=== PATIENT | female | born 1995 | race African-American/Black ===

== ENCOUNTER 2023-11-01 15:25 | Day surgery (SDC) | payer MEDICAID, OTHER ==
[2023-11-01 16:35] VITALS: BMI 48.2
[2023-11-01] MEDS ORDERED: hydrALAZINE 20 MG/ML VIAL SLOW IVP PRN (16:48)
== END 2023-11-01 17:34 | disposition home or self-care (01) ==
LOC: CSHLD/OP 15:25
PROVIDERS: ATTEND Obstetrics & Gynecology
DX: Z36.89 Encounter for other specified antenatal screening (principal); O99.213 Obesity complicating pregnancy, third trimester; Z90.49 Acquired absence of other specified parts of digestive tract; Z79.82 Long term (current) use of aspirin; Z79.899 Other long term (current) drug therapy; Z3A.38 38 weeks gestation of pregnancy; Z87.59 Personal history of other complications of pregnancy, childbirth and the puerperium

== ENCOUNTER 2023-11-06 05:00 | Inpatient (IN) | payer BC, MEDICAID, OTHER ==
[2023-11-06] MEDS ORDERED: ePHEDrine Sulfate 50 MG/10 ML VIAL ONE (08:00)
[2023-11-06] MEDS ORDERED: Bupivacaine 0.25% HCL 30 ML VIAL ONE (08:00)
[2023-11-06] MEDS ORDERED: Acetaminophen 500 MG TAB PO PRN (20:20)
[2023-11-06] MEDS ORDERED: Ondansetron PF 4 MG/2 ML Vial IVP PRN (20:20)
[2023-11-06] MEDS ORDERED: Promethazine HCl 25 MG/ML VIAL IM PRN (20:20)
[2023-11-06] MEDS ORDERED: hydrALAZINE 20 MG/ML VIAL SLOW IVP PRN (20:20)
[2023-11-06] MEDS ORDERED: Lidocaine 1% (PF) 30 ML VIAL SC PRN (20:20)
[2023-11-06] MEDS ORDERED: Lactated Ringer's 1,000 ML IV SCH (21:00)
[2023-11-06 21:21] VITALS: BMI 48.2
[2023-11-06 21:28] LABS: Hematocrit 31.4 % (34.9-44.5); Hemoglobin 9.7 g/dL (12.0-15.5); Mean Corpuscular HGB CONC 30.9 g/dL (32.0-36.0); Mean Corpuscular Hemoglobin 21.6 pg (27.0-33.0); Mean Corpuscular Volume 69.8 fl (81.6-98.3); Platelet Count 218 10x3/uL (150-450); RBC Distribution Width 20.7 % (11.5-14.5); White Blood Cell (WBC) Count 6.8 10x3/uL (3.5-10.5)
[2023-11-06] MEDS: Misoprostol 100 MCG TAB VAG PRN (21:39)
[2023-11-06] MEDS: Penicillin G Potassium 5 MILL.UNITS in Sodium Chloride 0.9% 100 ML IVPB SCH (21:39)
[2023-11-06 21:56] LABS: Syphilis Antibody Nonreactive (Nonreactive); Syphilis Antibody Index 0.04 S/CO (<1.00 Non-Reactive)
[2023-11-06 21:57] LABS: HBSAg Index 0.23 S/CO (0-0.99); Hep B Surf Ag - L&D Non-Reactive S/CO (NonReactive)
[2023-11-07] MEDS: Penicillin G 2.5 MILL.units 2.5 MILL.UNITS in Premix 1 BAG IVPB SCH (02:28)
[2023-11-07] MEDS: fentaNYL 50 mcg/mL 1 mL Vial ONE (10:33)
[2023-11-07] MEDS: fentaNYL/Ropivacaine Epidural 100 ML ONE (11:53)
[2023-11-07] MEDS: Oxytocin 30 units/NS 500 ML 500 ML IV PRN (12:14)
[2023-11-07] MEDS ORDERED: ePHEDrine Sulfate 50 MG/10 ML VIAL SLOW IVP PRN (12:40)
[2023-11-07] MEDS ORDERED: Naloxone HCl 0.4 mg/ml Vial IVP PRN ×2 (12:40)
[2023-11-07] MEDS ORDERED: Acetaminophen 325 MG TAB PO PRN (12:40)
[2023-11-07] MEDS ORDERED: Promethazine HCl 25 MG/ML VIAL IM PRN ×2 (12:40→16:17)
[2023-11-07] MEDS ORDERED: Ondansetron PF 4 MG/2 ML Vial IVP PRN ×2 (12:40→16:17)
[2023-11-07] MEDS ORDERED: Moisturizing Cream (Eucerin) 113 GM JAR TOP PRN (12:40)
[2023-11-07] MEDS ORDERED: diphenhydrAMINE 50 MG/ML VIAL IVP PRN (12:40)
[2023-11-07] MEDS ORDERED: Lactated Ringer's 500 ML IV PRN (12:40)
[2023-11-07] MEDS ORDERED: Communication Order-Pharmacy FS SCH (12:45)
[2023-11-07] MEDS ORDERED: fentaNYL 2 mcg/Ropivacaine 0.2% Epidural 100 ML CADD EPIDURAL SCH (12:45)
[2023-11-07] MEDS ORDERED: Misoprostol 200 MCG TAB VAG PRN (16:17)
[2023-11-07] MEDS ORDERED: Methylergonovine 0.2 MG/ML VIAL IM PRN (16:17)
[2023-11-07] MEDS ORDERED: Lanolin Ointment 7 GM TUBE TOP PRN (16:17)
[2023-11-07] MEDS ORDERED: hydrALAZINE 20 MG/ML VIAL SLOW IVP PRN (16:17)
[2023-11-07] MEDS ORDERED: Preparation H Ointment 28 GM TUBE PR PRN (16:17)
[2023-11-07] MEDS ORDERED: diphenhydrAMINE 25 MG CAP PO PRN (16:17)
[2023-11-07] MEDS ORDERED: Milk Of Magnesia 30 ML UDCUP PO PRN (16:17)
[2023-11-07] MEDS ORDERED: Benzocaine-Menthol 82.5 ML CAN TOP PRN (16:17)
[2023-11-07] MEDS ORDERED: Bisacodyl 10 MG SUPP PR PRN (16:17)
[2023-11-07 16:37] LABS: Analyzer IN Cardio CS NICU; Critical Notified Whom: NINDE; RapidComm Collect By CBN; pH (Cord, venous) 7.283 (7.250-7.350)
[2023-11-07] MEDS: Oxytocin 30 units/NS 500 ML 500 ML IV SCH (16:45)
[2023-11-07] MEDS: Ferrous Sulfate 325 MG TAB PO SCH (21:52)
[2023-11-07] MEDS: Docusate 100 MG CAP PO SCH (21:53)
[2023-11-07] MEDS: Ibuprofen 800 MG TAB PO SCH (21:53)
[2023-11-08] MEDS: Boostrix 0.5 ML (Tdap) VIAL (>/=7 yrs of age) IM ONE (08:11)
[2023-11-08 09:10] LABS: Hematocrit 28.8 % (34.9-44.5); Mean Corpuscular HGB CONC 31.3 g/dL (32.0-36.0); Mean Corpuscular Hemoglobin 21.8 pg (27.0-33.0); Mean Corpuscular Volume 69.9 fl (81.6-98.3); Platelet Count 181 10x3/uL (150-450); RBC Distribution Width 21.2 % (11.5-14.5); Red Blood Cell (RBC) Count 4.12 10x6/uL (3.90-5.03); White Blood Cell (WBC) Count 8.3 10x3/uL (3.5-10.5)
[2023-11-08] MEDS: Prenatal Vitamin 1 TAB PO SCH (09:45)
[2023-11-08 11:11] VITALS: BP 107/57; TEMP 98.1
== END 2023-11-08 18:20 | disposition home or self-care (01) | DRG 807 ==
LOC: CSHLD 19:57 → CSHPP 11-07 18:20
PROVIDERS: ADMIT Emergency Medicine; ATTEND Emergency Medicine
PROC: 10E0XZZ Delivery of Products of Conception, External Approach (ICD-10-PCS; principal; 2023-11-07)
PROC: 10907ZC Drainage of Amniotic Fluid, Therapeutic from Products of Conception, Via Natural or Artificial Opening (ICD-10-PCS; 2023-11-07)
DX: O99.824 Streptococcus B carrier state complicating childbirth (principal); Z37.0 Single live birth; Z3A.39 39 weeks gestation of pregnancy; O76 Abnormality in fetal heart rate and rhythm complicating labor and delivery; O99.214 Obesity complicating childbirth; E66.01 Morbid (severe) obesity due to excess calories; O99.02 Anemia complicating childbirth; Z90.49 Acquired absence of other specified parts of digestive tract; Z82.49 Family history of ischemic heart disease and other diseases of the circulatory system; Z83.3 Family history of diabetes mellitus; Z79.82 Long term (current) use of aspirin; D50.9 Iron deficiency anemia, unspecified
CPT/HCPCS: 36415; 51702; 76815; 82805; 85027; 86780; 86850; 86900; 86901; 87340; 88307; J0665; J2540; J2590; J3010; J3490